=== PATIENT | male | born 1985 | race Caucasian/White ===

== ENCOUNTER 2021-03-30 09:39 | Emergency (ER) | payer OTHER ==
[~2021-03-30] VITALS: Ht 170.2 cm; Wt 59.1 kg
[~2021-03-30 09:39] MED LIST: ACET-784 PO; ONDA-104 PO
[2021-03-30 10:14] VITALS: BP 127/86
== END 2021-03-30 11:37 | disposition home or self-care (01) ==
LOC: EMS 09:45
DX: L20.9 Atopic dermatitis, unspecified (principal); M79.10 Myalgia, unspecified site; F17.210 Nicotine dependence, cigarettes, uncomplicated; F19.90 Other psychoactive substance use, unspecified, uncomplicated
CPT/HCPCS: 99283; Z7502

== ENCOUNTER 2021-07-11 18:07 | Inpatient (IN) | payer OTHER ==
[~2021-07-11] VITALS: Ht 170.2 cm; Wt 63.6 kg
[2021-07-11] MEDS ORDERED: KETOROLAC TROMETHAMINE 30 MG/ML VIAL IVP ONE (19:45)
[2021-07-11] MEDS ORDERED: LOPERAMIDE HCL 2 MG CAPSULE PO ONE (19:45)
[2021-07-11] MEDS ORDERED: SODIUM CHLORIDE 0.9% 1,000 ML IV ONE (19:45)
[2021-07-11] MEDS ORDERED: ONDANSETRON HCL 4 MG/2 ML VIAL IVP ONE (19:45)
[2021-07-11 19:56] LABS: BASOPHILS % (AUTO) 0.4 % (0.0-2.0); EOSINOPHILS % (AUTO) 0 % (1.0-6.0); HEMATOCRIT 40.1 % (41-53); HEMOGLOBIN 12.9 g/dL (13.5-17.5); LYMPHOCYTES % (AUTO) 7.5 % (22.0-44.0); MEAN CORPUSCULAR HGB CONC 32.1 G/dL (31.0-37.0); MEAN CORPUSCULAR VOLUME 84 fL (80-100); MONOCYTES # (AUTO) 0.6 K/uL (0.1-1.0); MONOCYTES % (AUTO) 4.7 % (2.0-9.0); NEUTROPHILS # (AUTO) 11.2 K/uL (1.8-7.7); PLATELET COUNT (AUTO) 510 K/uL (150-450); RED BLOOD CELL COUNT(AUTO) 4.78 MIL/uL (4.50-5.90); RED CELL DISTRIBUTION WIDTH 15.4 % (11.5-14.5)
[2021-07-11 19:57] LABS: NEUTROPHILS % (AUTO) 87.4 % (40.0-70.0)
[2021-07-11 20:40] LABS: ANION GAP 12 mmol/L (8-16); CALCIUM, TOTAL 9.2 mg/dL (8.8-10.5); CARBON DIOXIDE 25 mmol/L (22-29); CHLORIDE 99 mmol/L (98-107); CREATININE 0.83 mg/dL (0.60-1.30); GLOMERULAR FILTR. RATE CALC > 60 mL/min (>60); GLUCOSE,RANDOM 111 mg/dL (70-110); SODIUM SERUM 136 mmol/L (136-145); UREA NITROGEN, BLOOD 9 mg/dL (7-18)
[2021-07-11 20:45] LABS: ALANINE AMINOTRANSFERASE 18 U/L (12-78); ALKALINE PHOSPHATASE 94 U/L (46-116); ASPARTATE AMINOTRANSFERASE 16 U/L (15-37); BILIRUBIN,TOTAL 0.4 mg/dL (0.1-1.0); TOTAL PROTEIN, SERUM 9.3 g/dL (6.4-8.2)
[2021-07-11 21:02] LABS: COVID AG,FIA SOURCE NASOPHARYNGEAL
[2021-07-11] MEDS ORDERED: ACETAMINOPHEN 325 MG TABLET PO PRN ×2 (22:45)
[2021-07-11] MEDS ORDERED: ONDANSETRON HCL 4 MG/2 ML VIAL IVP PRN (22:45)
[2021-07-11 23:45] VITALS: BP 121/67
[2021-07-12 04:14] VITALS: BP 124/74
[2021-07-12] MEDS: ONDANSETRON HCL 4 MG/2 ML VIAL IVP PRN ×2 (05:00→11:18)
[2021-07-12 08:01] VITALS: BP 126/70
[2021-07-12] MEDS: HEPARIN SODIUM,PORCINE 5,000 UNITS/ML VIAL SQ SCH ×4 (08:03→23:37)
[2021-07-12] MEDS: ETHYL ALCOHOL 62% ANTISEPTIC NASAL INHALANT 0.6 ML AMPUL NASAL SCH ×2 (08:03→20:46)
[2021-07-12] MEDS ORDERED: ACETAMINOPHEN/CODEINE 300-15 MG TABLET PO PRN (12:45)
[2021-07-12] MEDS ORDERED: DICYCLOMINE HCL 10 MG CAPSULE PO PRN (12:45)
[2021-07-12] MEDS ORDERED: METOCLOPRAMIDE HCL 5 MG/ML 2 ML VIAL IVP PRN (12:45)
[2021-07-12] MEDS ORDERED: LOPERAMIDE HCL 2 MG CAPSULE PO PRN (12:45)
[2021-07-12] MEDS: LORazepam 2 MG/ML VIAL IVP PRN ×2 (12:48→20:46)
[2021-07-12 15:45] VITALS: BP 123/71
[2021-07-12 20:30] VITALS: BP 134/80
[2021-07-12] MEDS: TEMAZEPAM 15 MG CAPSULE PO SCH ×2 (21:00→23:42)
[2021-07-12 23:48] VITALS: BP 137/87
[2021-07-13 04:56] VITALS: BP 140/84
[2021-07-13] MEDS: LORazepam 2 MG/ML VIAL IVP PRN (05:06)
[2021-07-13 07:59] VITALS: BP 111/76
[2021-07-13] MEDS: HEPARIN SODIUM,PORCINE 5,000 UNITS/ML VIAL SQ SCH ×2 (08:00→15:59)
[2021-07-13] MEDS: ETHYL ALCOHOL 62% ANTISEPTIC NASAL INHALANT 0.6 ML AMPUL NASAL SCH ×3 (08:07→21:56)
[2021-07-13] MEDS ORDERED: LORazepam 2 MG/ML VIAL IVP PRN (12:15)
[2021-07-13 15:06] VITALS: BP 119/71
[2021-07-13 19:38] VITALS: BP 114/70
[2021-07-13] MEDS: TEMAZEPAM 15 MG CAPSULE PO SCH (21:56)
[2021-07-14 04:10] VITALS: BP 135/89
[2021-07-14] MEDS: HEPARIN SODIUM,PORCINE 5,000 UNITS/ML VIAL SQ SCH ×2 (08:22)
[2021-07-14 08:35] VITALS: BP 121/75
[2021-07-14] MEDS ORDERED: MULTIVITAMINS, THERAPEUTIC TABLET PO SCH (09:00)
[2021-07-15] MEDS ORDERED: MUPI22OI2 NASAL (15:43)
== END 2021-07-14 15:06 | DRG 897 ==
LOC: EMS 18:10 → 6S 22:43
PROVIDERS: ADMIT Internal Medicine; ATTEND Internal Medicine
DX: F11.20 Opioid dependence, uncomplicated (principal); R65.10 Systemic inflammatory response syndrome (SIRS) of non-infectious origin without acute organ dysfunction; D64.9 Anemia, unspecified; F15.10 Other stimulant abuse, uncomplicated; Z20.822 Contact with and (suspected) exposure to COVID-19; F17.210 Nicotine dependence, cigarettes, uncomplicated; F32.9 Major depressive disorder, single episode, unspecified; Z86.14 Personal history of Methicillin resistant Staphylococcus aureus infection
CPT/HCPCS: 80053; 85025; 87081; 99285; J1644; J1885; J2060; J2405; J7030

== ENCOUNTER 2021-07-14 16:03 | Inpatient (IN) | payer OTHER ==
[~2021-07-14] VITALS: Ht 170.2 cm; Wt 64.0 kg
[2021-07-14] MEDS ORDERED: LORazepam 1 MG TABLET PO ONE (18:45)
[2021-07-15] MEDS: HEPARIN SODIUM,PORCINE 5,000 UNITS/ML VIAL SQ SCH ×3 (00:08→16:00)
[2021-07-15 00:25] VITALS: BP 114/73
[2021-07-15] MEDS: ACETAMINOPHEN 325 MG TABLET PO PRN ×2 (00:44→15:04)
[2021-07-15] MEDS ORDERED: MELATONIN 3 MG TABLET PO PRN (00:45)
[2021-07-15 04:25] VITALS: BP 119/71
[2021-07-15 07:56] VITALS: BP 107/67
[2021-07-15 15:18] VITALS: BP 104/69
[2021-07-15] MEDS ORDERED: MUPI22OI2 NASAL (15:43)
[2021-07-16] MEDS ORDERED: MUPIROCIN CALCIUM 2% 22 GM OINTMENT NASAL SCH (09:00)
== END 2021-07-15 16:45 | DRG 607 ==
LOC: EMS 16:04 → 6S 23:48
PROVIDERS: ADMIT Internal Medicine; ATTEND Internal Medicine
DX: R23.4 Changes in skin texture (principal); E44.0 Moderate protein-calorie malnutrition; F11.23 Opioid dependence with withdrawal; F19.10 Other psychoactive substance abuse, uncomplicated; L20.9 Atopic dermatitis, unspecified; Z87.891 Personal history of nicotine dependence; Z68.22 Body mass index [BMI] 22.0-22.9, adult
CPT/HCPCS: 87070; 87077; 87081; 87186; 87205; 99285; J1644